=== PATIENT | female | born 1960 | race Caucasian/White ===

== ENCOUNTER 2022-04-17 13:34 | Outpatient (CLI) | payer BC, SELFPAY | END 2022-04-17 13:35 | disposition home or self-care (01) | LOC: LAB 13:36 | PROVIDERS: PCP Family Medicine; Referring Provider Orthopaedic Surgery; Visit Provider Orthopaedic Surgery | DX: Z01.818 Encounter for other preprocedural examination (principal) | CPT/HCPCS: 36415; 86850; 86900; 86901 ==

== ENCOUNTER 2022-04-19 05:57 | Day surgery (SDC) | payer BC, SELFPAY ==
[2022-04-19] VITALS (28 sets, daily range): BP systolic 126–189; BP diastolic 71–144; PULSE 68–99; RESP 12–20; TEMP 35.6–37.2; O2SAT 88–99; BMI 29.8
[2022-04-19] MEDS: LACTATED RINGERS 1000 ML 1,000 ML 100 ML IV (06:30)
[2022-04-19] MEDS: SODIUM CHLORIDE 0.9 % (FLUSH) 10 ML SYRINGE IVF (07:14)
--- NOTE | 2022-04-19 07:30 | CRLHL7_ITS ---
For Patients: As a result of the Cures Act, medical imaging exams and procedure reports are released immediately into your electronic medical record. You may view this report before your referring provider. If you have questions, please contact your health care provider. Indication: Hip replacement surgery Technique: AP hip fluoroscopic images. Fluoroscopy time 67.5 seconds. Findings/Impression: Hardware from a left total hip arthroplasty is in satisfactory position. Dictated by Jose Trevino MD @ 04/19/2022 1:38:47 PM (Electronically Signed)
[2022-04-19] MEDS: ACETAMINOPHEN 500 MG TABLET 1000 MG PO ×2 (07:50→17:57)
[2022-04-19] MEDS: OXYCODONE (CR) 10 MG TAB.ER.12H PO (07:50)
[2022-04-19] MEDS: CELECOXIB 200 MG CAPSULE PO (07:50)
[2022-04-19] MEDS: fentaNYL 100 MCG/2 ML inj IVP (07:54)
[2022-04-19] MEDS: MIDAZOLAM HCL 1 MG/ML inj IVP (07:54)
--- NOTE | 2022-04-19 07:55 | SUR.PREOP ---
TIME?OUT:?0753 PT/duc donaldson RN/dr. phillip MDA?VERIFICATION?OF?SURGICAL?SITE left hip,?PROCEDURE,?AND?CONSENT OBTAINED?PRIOR?TO?INVASIVE?PROCEDURE.
--- NOTE | 2022-04-19 08:05 | P.NB_ITS ---
Nerve Block Nerve Block Time Seen by Provider: 07:51 Date Seen: 04/19/22 Type of block requested by surgeon for post-operative analgesia: SUN/LFCN Side: left Time out performed: Yes Verification of patient name: Yes Verification of date of : Yes Site marking: site marked Name of person performing procedure: Tadeo Assistants, if any: DeAmbrogio Continuous monitoring Was continuous monitoring of O2 sat, B/P, edging supervisor, recorded every 15 minutes?: Yes Procedure Checklist: sterile prep and needles Ultrasound guided. Images saved: Yes Medications given in 5ml increments after negative aspiration: Ropivicaine %: 0.5 mL: 20 Needle gauge: 20 Decadron (mg): 10 Precedex (mcg): 25 Patient tolerated procedure well: Yes Additional comments: Needle noted adjacent to nerve
[2022-04-19] MEDS: CEFAZOLIN 2 GM INJ IVP (08:20)
--- NOTE | 2022-04-19 10:20 | SUR.OPER ---
3000 ML USED FOR IRRIGATION USED AT THE END OF THE CASE.
--- NOTE | 2022-04-19 10:21 | CRLHL7_ITS ---
For Patients: As a result of the Cures Act, medical imaging exams and procedure reports are released immediately into your electronic medical record. You may view this report before your referring provider. If you have questions, please contact your health care provider. Indication: POST OP Technique: AP hip centered pelvic film and lateral view left hip Findings/Impression: Hardware from a left total hip arthroplasty is in satisfactory position. Bone alignment is normal. No sign of acute fracture. Postop changes are within normal limits. Dictated by Jose Trevino MD @ 04/19/2022 1:44:55 PM (Electronically Signed)
--- NOTE | 2022-04-19 10:29 | P.ORPRC_ITS ---
Procedure Note Procedure: SURGEON: Francisco Lao MD SCADA OPERATOR: Katherin Robins PA-C, [facility] PREOPERATIVE DIAGNOSIS: Left hip osteoarthritis POSTOPERATIVE DIAGNOSIS: Left hip osteoarthritis NAME OF OPERATION: Left total hip arthroplasty IMPLANTS: 1. [employer] [place] # 54 sector ingrowth cup 2. 36 x 54 +4 neutral polyethylene 3. [place]ail # 9 standard collared ingrowth stem 4. 36 + 1.5 ceramic femoral head ANESTHESIA: General ESTIMATED BLOOD LOSS: 300 cc COMPLICATIONS: None SPECIMENS: None DRAINS: None PREOPERATIVE ANTIBIOTICS: Ancef 2 grams INDICATIONS: The patient is a 61-year-old with a longstanding history of severe, unrelenting left hip pain secondary to end-stage left hip osteoarthritis . Despite appropriate nonoperative management, including activity modification, use of an assist device, anti-inflammatories, [id number] pain medication, physical therapy and injections, they continue to have pain and disability. Operative intervention was offered. The risks, benefits and expected outcomes were discussed in detail. These included but were not limited to: Infection, bleeding, injury to blood vessel or nerve, venous thromboembolism. All questions were answered to their satisfaction. Use of an retail event and sales assistant was necessary throughout the case for patient positioning and safety, soft tissue retraction and closure. PROCEDURE: The patient was placed supine on the [place] table. General anesthesia was administered. The retail event and sales assistant made sure the patient was properly positioned. The left hip was prepped and draped in the usual sterile fashion. The image intensifier was brought in for a perfect AP pelvis and a perfect double tear drop AP view of each hip which were used for intraoperative templating with our fluoroscopic guide. An oblique incision was made 3 cm distal and 3 cm lateral to the anterior superior iliac spine. The retail event and sales assistant retracted the soft tissues to protect them. Subcutaneous dissection was taken with electrocautery to the superficial fascia. The fascia was divided in line with the incision. Blunt dissection was carried medially to the tensor fascia alyssa and sartorius interval. Deep dissection was carried with electrocautery. The circumflex vessels were cauterized and divided. The capsule was exposed and then divided in a T-fashion , tagged with #1 Ethibond sutures. Retractors were placed in the joint, held by the retail event and sales assistant. The corkscrew was placed in the femoral head. The neck cut was made in the subcapital region. We made a second neck cut more distal. The napkin ring of bone was removed. The femoral head was removed intact. Acetabular retractors were placed, held by the retail event and sales assistant. The labrum was sharply debrided. The capsule was released. The 43 mm reamer was used to the true medial wall. We then enlarged in 2 mm increments using the image intensifier for our reamer placement. We impacted the cup which had excellent purchase. We placed the hole eliminator and the polyethylene. Attention was then turned to the proximal femur. The limb was placed in 140 degrees of external rotation, maximum extension and adduction. A significant amount of time was spent releasing the capsule to allow us to deliver the femur into the wound and complete the femoral side safely. Retractors were held by the retail event and sales assistant throughout the femoral preparation. The drip box tender and canal finder were used. Broaches were used to a stable size. The calcar reamer was used. Trial components were placed. The hip was reduced and was found to be stable with appropriate soft tissue tension. Length and offset had been nicely restored using the image intensifier and our fluoroscopic guide. Trial components were removed. The stem was impacted. We placed the femoral head. Again, the hip was reduced and was found to be stable with appropriate soft tissue tension. Length and offset had been nicely restored. The retail event and sales assistant did a three minute dilute Betadine solution soak. The retail event and sales assistant irrigated the wound with 3 liters of normal saline via pulse lavage. The retail event and sales assistant repaired the anterior capsule with a #1 Vicryl and our previously placed Ethibond sutures. The retail event and sales assistant closed the fascia over the tensor fascia alyssa with a #1 PDO Stratafix, subcutaneous tissues with 2-0 Vicryl, skin with a running 3-0 Stratafix and glue. A dry dressing was applied by the retail event and sales assistant. Sponge and needle counts were correct x 2. The patient tolerated the procedure well; there were no apparent complications. They were awakened and extubated in the operating room, sent to the Post-Anesthesia Care Unit in satisfactory condition. PLAN: 1. The patient will be mobilized with physical therapy, weight-bearing as tolerates 2. Xarelto x 5 days then aspirin x 30 days will be used for DVT prophylaxis 3. The patient will be discharged once medically appropriate
--- NOTE | 2022-04-19 10:56 | W.ANESCHARGE ---
Anesthesia Charges Start Date/Time Anesthesia Start Date: 04/19/22 Anesthesia Start Time: 08:09 Stop Date/Time Anesthesia Stop Date: 04/19/22 Anesthesia Stop Time: 10:54 Summary Emergency: No
[2022-04-19] MEDS: ONDANSETRON 2 MG/ML inj 4 MG IVP ×4 (11:10→18:50)
[2022-04-19] MEDS: fentaNYL 100 MCG/2 ML inj 50 MCG IVP ×2 (11:12→11:30)
[2022-04-19] MEDS: diphenhydrAMINE 50 MG/ML inj IVP (12:08)
[2022-04-19] MEDS: LACTATED RINGERS 1000 ML 1,000 ML 75 ML IV (12:58)
[2022-04-19] MEDS: OXYCODONE 5 MG TABLET PO ×2 (13:43→20:57)
[2022-04-19] MEDS: HYDROmorphone 0.5 mg/0.5 ml inj IVP (13:51)
[2022-04-19] MEDS: LORazepam 2 MG/ML inj 0.5 MG IVP (14:11)
--- NOTE | 2022-04-19 14:27 | PM.IMPN1 ---
Progress Note: A&P Assessment and plan (1) Hyperlipidemia: Problem details: continue statin Status: Chronic (2) Osteoarthritis of left hip: Problem details: s/p Left LEENA, EBL 300cc, General Anesthesia Status: Acute Assessment and Plan: pain control, diet, dvt ppx per surgery (3) Pseudogout of joint of left foot: Status: Chronic (4) Hypertension: Problem details: continue metoprolol and lisinopril Status: Chronic (5) Hypothyroidism: Problem details: continue synthroid Status: Chronic Subjective Time Seen by Provider: 15:08 Date Seen: 04/19/22 Interval history: The patient is status post left LEENA she was nauseated earlier after returning from surgery She was given ativan and currently is sedated denies chest pain and sob; but minimally engaging in conversation Exam Const: Vital Signs, click to edit/add: Vital Signs - 24 hr 04/19/22 06:56 04/19/22 07:52 04/19/22 07:55 Temperature 98.5 F Pulse Rate 89 89 87 Pulse Rate [Pulse Oximeter] Respiratory Rate 16 16 16 Blood Pressure 155/91 H 169/84 H 172/97 H Blood Pressure [Ri ght Arm] Pulse Oximetry 97 98 98 04/19/22 08:00 04/19/22 10:51 04/19/22 10:55 Temperature 97.4 F L Pulse Rate 81 90 81 Pulse Rate [Pulse Oximeter] Respiratory Rate 16 14 14 Blood Pressure 152/91 H 138/91 H 147/76 H Blood Pressure [Ri ght Arm] Pulse Oximetry 98 97 93 04/19/22 11:00 04/19/22 11:05 04/19/22 11:10 Temperature Pulse Rate 82 88 81 Pulse Rate [Pulse Oximeter] Respiratory Rate 14 14 12 Blood Pressure 156/87 H 161/122 H 139/81 Blood Pressure [Ri ght Arm] Pulse Oximetry 92 92 88 04/19/22 11:15 04/19/22 11:20 04/19/22 11:25 Temperature Pulse Rate 68 72 77 Pulse Rate [Pulse Oximeter] Respiratory Rate 12 12 12 Blood Pressure 144/76 H 143/71 H 155/75 H Blood Pressure [Ri ght Arm] Pulse Oximetry 94 94 99 04/19/22 11:30 04/19/22 11:35 04/19/22 11:40 Temperature 97 F L Pulse Rate 86 79 79 Pulse Rate [Pulse Oximeter] Respiratory Rate 12 12 12 Blood Pressure 153/88 H 161/80 H 181/97 H Blood Pressure [Ri ght Arm] Pulse Oximetry 92 95 95 04/19/22 11:50 04/19/22 12:00 04/19/22 12:15 Temperature 96.6 F L 96.2 F L 96.2 F L Pulse Rate Pulse Rate [Pulse Oximeter] 97 88 84 Respiratory Rate 20 20 16 Blood Pressure Blood Pressure [Ri ght Arm] 178/105 H 189/144 H 164/83 H Pulse Oximetry 96 98 92 04/19/22 12:30 04/19/22 12:45 04/19/22 13:00 Temperature 96.2 F L 96.1 F L 96.1 F L Pulse Rate Pulse Rate [Pulse Oximeter] 75 69 73 Respiratory Rate 20 16 16 Blood Pressure Blood Pressure [Ri ght Arm] 153/75 H 145/85 H 140/73 H Pulse Oximetry 95 97 95 Common normals: no apparent distress and alert Exam limitations: other limitations (sedated) Orientation/consciousness: Yes awake HENMT: Common normals: normocephalic and external ears normal Head and scalp: normocephalic External ear: external ears normal Mouth: oral and palatal mucosa normal Eye: Common normals: EOMs intact bilaterally Chest: Common normals: inspection of chest normal Resp: Common normals: normal respiratory effort and clear to auscultation bilaterally Auscultation: clear to auscultation bilaterally Cardio: Common normals: regular rate, regular rhythm, S1 normal heart sound and S2 normal heart sound Rate: regular rate Rhythm: regular rhythm Heart sounds: S1 normal and S2 normal GI: Common normals: soft to palpation and non-tender Palpation: soft Extremity: Common normals: normal to inspection Neuro: [place] Coma Scale: other (sedated) Sensorium/orientation: awake and alert Speech: speech normal Psych: Appearance: grossly normal
[2022-04-19] MEDS: CEFAZOLIN 2 GM in 0.9 % SODIUM CHLORIDE Mini-bag 100 ML IVPB ×2 (14:46→22:22)
[2022-04-19] MEDS: hydrOXYzine pamoate 25 MG CAPSULE PO (14:47)
--- NOTE | 2022-04-19 15:01 | PC.NURSE ---
pt to floor from PACU at 1150. pt awake and very nauseous at the time, pt verbalized that the fentanyl given to her in OR and PACU is making her very nauseous, shes very upset bcuz she had fentanyl listed as an allergy and it was confirmed prior to surgery. pt advocate called at 1347, Dr Lao called at 1354 - both entered room at 1418 to speak with pt.
--- NOTE | 2022-04-19 15:27 | W.ANESCHARGE ---
Anesthesia Charges Start Date/Time Anesthesia Start Date: 04/19/22 Anesthesia Start Time: 08:09 Stop Date/Time Anesthesia Stop Date: 04/19/22 Anesthesia Stop Time: 10:54 Summary Emergency: No
--- NOTE | 2022-04-19 15:30 | PM.ANBPRC ---
PFSH PFS Medical History (Updated 04/19/22 @ 15:16 by Hasmukh Hernandez MD) Class 1 obesity Hyperlipidemia Hypertension Hypothyroidism Osteoarthritis of knee Osteoarthritis of left hip Pseudogout of joint of left foot Vasculitis Surgical History (Updated 04/19/22 @ 14:37 by Hasmukh Hernandez MD) Status post right hip replacement (2019) Family History (Updated 03/28/22 @ 11:52 by Varun Lopez) Other Colon cancer Diabetes Lymphoma Social History (Updated 03/28/22 @ 11:52 by Varun Lopez) Narrative: Single, 2 kids, unemployed Non-smoker No EtOH Smoking Status: Former smoker Do you use any of these nicotine containing products: None How often do you have a drink containing alcohol: never AUDIT-C Alcohol total score: 0 Non-prescribed substance use: denies use Caffeine: Yes Are you using contraception or practicing any form of control: No Meds Home Medications and Allergies Home Medications Medication Instructions Recorded Confirmed Type amoxicillin 500 mg capsule 2,000 mg PO ONCE cap 04/13/22 04/17/22 History atorvastatin 20 mg tablet 20 mg PO QPM 04/13/22 04/19/22 History levothyroxine 75 mcg capsule 75 mcg PO QDAY 04/13/22 04/19/22 History lisinopril 10 mg tablet 10 mg PO QDAY 04/15/22 04/19/22 History metoprolol succinate 50 mg 50 mg PO DAILY tab 04/15/22 04/19/22 History tablet,extended release 24 hr Allergies Allergy/AdvReac Type Severity Reaction Status Date / Time codeine Allergy Intermediate shaky Verified 04/19/22 06:21 fentanyl Allergy Intermediate jenniferky, Verified 04/19/22 14:44 didn't feel right, heart pounding hydrochlorothiazide AdvReac Severe felt like Verified 04/19/22 06:21 she was having a heart attack Results Vital Signs Vital Signs: Last Vital Signs Temp 96.1 F L 04/19/22 15:00 Pulse 84 04/19/22 15:00 Resp 16 04/19/22 15:00 BP 139/82 04/19/22 15:00 Pulse Ox 95 04/19/22 15:00 Weight: 83.915 kg Height: 167.64 cm
[2022-04-19] MEDS: PROCHLORPERAZINE 5 MG/ML VIAL IV ×2 (17:53→23:34)
--- NOTE | 2022-04-19 18:07 | PC.NURSE ---
pt to floor 1150. A x 1 with gb and walker, tolerated very well. 1x to BR, 150mL urine output. pt sat in chair for a short period of time. 75mL/hr LR running in left wrist IV. pt struggling with nausea since admin to the floor, Zofran & Compazine given, aromatherapy patch applied. about 10ml of emesis after sipping on brian liss. at end of shift pt is stating slight improvement with her nausea. pain currently rated 3/10, see emar. active ice to site. BP trending down, still hypertensive. LS CTA. Pt on 1L O2 while asleep to maintain sats >88%. On RA while awake and O2 sat 94%. Dressing to surgical site CDI. Cap refill <3secs. Pt cussing frequently. stating they did something different this time, if I knew i was going to feel this shitty I wouldn't have gotten this surgery - Pt had a RTH done here previously and said it was not nearly this bad.
[2022-04-19] MEDS: ATORVASTATIN 10 MG TABLET 20 MG PO (20:56)
[2022-04-19] MEDS: SENNOSIDES 1 TAB TABLET 2 TAB PO (20:56)
[2022-04-20] MEDS: ACETAMINOPHEN 500 MG TABLET 1000 MG PO ×2 (00:31→06:11)
[2022-04-20] MEDS: LACTATED RINGERS 1000 ML 1,000 ML 75 ML IV (01:45)
[2022-04-20 03:00] VITALS: BP 133/81; PULSE 88; RESP 18; TEMP 36.8; O2SAT 92
[2022-04-20] MEDS: CEFAZOLIN 2 GM in 0.9 % SODIUM CHLORIDE Mini-bag 100 ML IVPB (06:09)
[2022-04-20] MEDS: ONDANSETRON 2 MG/ML inj 4 MG IVP (06:10)
--- NOTE | 2022-04-20 06:19 | PC.NURSE ---
[id number]: Patient pleasant and cooperative. Rates pain 2-4/10. PRN Oxy x1 for relief. C/o nausea with x1 emesis episode. PRN Compazine x1 and Zofran x1 administered for relief. Only able to tolerate brian liss and water at this point. A1, walker, GB. Tolerates well. CMS intact. Dressing to L. hip C/D/I.
[2022-04-20] MEDS: LEVOTHYROXINE 75 MCG TABLET PO (07:02)
[2022-04-20 07:52] VITALS: BP 138/73; PULSE 93; RESP 18; TEMP 37.1; O2SAT 92
[2022-04-20] MEDS: SENNOSIDES 1 TAB TABLET 2 TAB PO (08:59)
[2022-04-20] MEDS: METOPROLOL SUCCINATE (XL) 50 MG TAB PO (08:59)
[2022-04-20] MEDS: lisinopriL 10 MG TABLET PO (08:59)
[2022-04-20] MEDS: RIVAROXABAN 10 MG TABLET PO (08:59)
[2022-04-20] MEDS: OXYCODONE 5 MG TABLET PO (08:59)
[2022-04-20 09:09] LABS: Hematocrit 32.8 % (33.0-51.0); Hemoglobin* 10.7 gm/dL (12.0-16.0); Immature Granulocytes Abs Auto 0.05 K/uL (0.00-0.30); Mean Corpuscular HGB Conc 33 gm/dL (32-36); Mean Corpuscular Hemoglobin 30 pg (26-34); Mean Corpuscular Volume 91 fL (80-100); Monocytes Percent Auto 5.5 % (0.0-11.0); Neutrophils Percent Auto 86.3 % (42.0-72.0); Platelet Count* 332 K/uL (140-440); RDW Coefficient of Variation % 13.1 % (11.5-15.5); Red Blood Count 3.62 m/uL (4.00-5.20)
[2022-04-20 09:22] LABS: Chloride* 104 mmol/L (96-114); Potassium* 3.9 mmol/L (3.6-5.1); Sodium* 136 mmol/L (135-149)
[2022-04-20 09:25] LABS: Blood Urea Nitrogen* 13 mg/dL (7-30); Calcium* 8.2 mg/dL (8.4-10.6); Carbon Dioxide* 27 mmol/L (20-32); Creatinine* 0.7 mg/dL (0.5-1.5); Est. Creatinine Clearance* 80.01; Estimated Glomerular Filt Rate 98.95; Glucose* 133 mg/dL (60-115)
[2022-04-20 09:40] LABS: White Blood Count* 25.32 K/uL (4.50-11.00)
[2022-04-20 09:41] LABS: Neutrophils Absolute Auto 21.86 K/uL (1.7-7.0); Slide Review Reflex Yes
[2022-04-20 09:43] LABS: Slide Review Acceptable Review (Acceptable)
--- NOTE | 2022-04-20 11:30 | PC.NURSE ---
discharge. ? Patient has been pleasant and cooperative.? Rates pain 0-2/10.?left hip PRN Oxy x1 for PT. no nausea.? she is eating, drinking and voiding with no problems. she is up with 1 assist, walker, GB.? she is a fall risk and alarms are on.? CMS intact.? Dressing to L. hip C/D/I.?active ice to hip. IS used, teds are on and off. SL was d/c intact. went over discharge packet with pt. went over medications appointments, instruction and education, pt went over and signed personal belonging sheet. she got a w/c ride out and took all paperwork and belongings
--- NOTE | 2022-04-20 13:23 | PM.ORPN ---
Subjective Subjective Time Seen by Provider: 07:30 Date Seen: 04/20/22 Principal diagnosis: Status post left hip replacement Interval history: The patient is status post left LEENA she was nauseated earlier after returning from surgery She was given ativan and currently is sedated denies chest pain and sob; but minimally engaging in conversation Ortho Exam Narrative Exam Narrative: Alert and oriented x3. Patient is in no acute distress. Converses without labored breathing. Hearing is grossly intact. Patient is examined in her recliner this morning. Examination of the left hip shows the dressing is intact. Mild soft tissue edema about the left hip. Mild ecchymosis. Tenderness over the anterior thigh with palpation. CMS intact left lower extremity. Bilateral calves are soft and nontender. Const Vital Signs, click to edit/add: Vital Signs - 24 hr 04/19/22 13:30 04/19/22 14:00 04/19/22 15:00 Temperature 96.1 F L 96.1 F L 96.1 F L Pulse Rate [Pulse Oximeter] 98 99 84 Respiratory Rate 20 20 16 Blood Pressure [Right Arm] 145/83 H 155/108 H 139/82 Pulse Oximetry 99 95 95 04/19/22 16:00 04/19/22 17:00 04/19/22 19:00 Temperature 96.1 F L 97 F L 98.9 F Pulse Rate [Pulse Oximeter] 74 77 85 Respiratory Rate 16 18 18 Blood Pressure [Right Arm] 140/80 H 154/117 H 145/75 H Pulse Oximetry 95 97 94 04/19/22 23:00 04/20/22 03:00 04/20/22 07:52 Temperature 97.9 F 98.3 F 98.7 F Pulse Rate [Pulse Oximeter] 86 88 93 Respiratory Rate 16 18 18 Blood Pressure [Right Arm] 126/75 133/81 138/73 Pulse Oximetry 94 92 92 Common normals: no apparent distress and oriented x3 General appearance: cooperative, comfortable, well kempt and well developed HENMT Common normals: Yes hearing grossly normal bilaterally Resp Common normals: Yes normal respiratory effort and Yes no retractions Cardio Common normals: Yes no JVD Neuro Common normals: oriented x3 Psych Common normals: mental status grossly normal, thought process normal, cooperative, affect normal, speech normal and activity/motor behavior normal Appearance: well kempt Attitude: calm and engaged Speech: normal speech Thought process: normal thought process Thought content: normal thought content Attention/concentration: attention grossly intact and concentration grossly intact Insight: insight good Assessment and Plan Assessment and plan (1) Hyperlipidemia: Problem details: continue statin Status: Chronic (2) Osteoarthritis of left hip: Problem details: s/p Left LEENA, EBL 300cc, General Anesthesia Status: Acute Assessment and Plan: Plan for discharge is today to home if they meet discharge criteria. DVT prophylaxis includes Xarelto 10 mg daily for total of 5 days, then aspirin 81 mg twice daily for 30 days, Emmanuel stockings x1 month may remove for 1 hr per day, frequent ambulation Remove dressing 1 week. Observe wound and phone Orthopedics with any questions or concerns Use Ice on operative hip unrestricted. Return to clinic in 1 week with PA for a wound check Return to clinic in [address] Lao Minimize narcotic use. Wean off and discontinue soon as possible. Activities as tolerated. No strenuous activity. Attend outpt PT (3) Pseudogout of joint of left foot: Status: Chronic (4) Hypertension: Problem details: continue metoprolol and lisinopril Status: Chronic (5) Hypothyroidism: Problem details: continue synthroid Status: Chronic
--- NOTE | 2022-04-20 15:49 | P.DS_ITS ---
DS: Providers Provider Primary care physician: Jose Hughes MD Consults: 04/19/22 10:21 Consult to Occupational Therapy [CONS] Routine Comment: Reason(s) for OT Consult:: Evaluate and Treat Any Restrictions?:: No Restrictions Consult to Physical Therapy [CONS] Routine Comment: Ambulate in the bella today Reason(s) for PT Consult:: Evaluate and Treat Any Restrictions?:: No Restrictions Comment: Nursing Activity Consult to Management And Budget Analyst [CONS] Routine Comment: Reason for Consult:: Discharge Planning Needs Attending Physician on discharge: Francisco Lao MD DS: Diagnosis Discharge Diagnosis (1) Osteoarthritis of left hip: Status: Acute Problem details: s/p Left LEENA, EBL 300cc, General Anesthesia (2) Hypertension: Status: Chronic Problem details: continue metoprolol and lisinopril (3) Hyperlipidemia: Status: Chronic Problem details: continue statin (4) Class 1 obesity: Status: Acute (5) Vasculitis: Status: Acute (6) Pseudogout of joint of left foot: Status: Chronic (7) Hypothyroidism: Status: Chronic Problem details: continue synthroid DS: Summary Hospital Course Hospital Course: Patient presented for an elective left total hip arthroplasty. Procedure undertaken successfully. Postoperatively pain was not well controlled and she received a dose of fentanyl. She has previously had an untoward reaction to fe ntanyl. This was listed on her allergy band. Evidently nevertheless she still receive fentanyl at this hospitalization. Had nausea, vomiting, retching subsequently. Eventually resolved. Otherwise had excellent recovery while in the hospital. Status at Discharge Cognitive/behavioral status at discharge: Alert, oriented to self, place, time, situation. Mood and affect are congruent. Overall status at discharge: patient is progressing back to baseline Time Spent with Patient Time attestation: Total time spent providing and/or coordinating discharge services: Time spent: Less than 30 minutes Exam Narrative: Exam Narrative: Eating and drinking without difficulties. Ambulating the halls with use of walker. Lungs are clear to auscultation. Regular heart rate and rhythm of the heart. Abdomen with active bowel sounds, soft, nontender. Const: Vital Signs, click to edit/add: Vital Signs - 24 hr 04/19/22 16:00 04/19/22 17:00 04/19/22 19:00 Temperature 96.1 F L 97 F L 98.9 F Pulse Rate [Pulse Oximeter] 74 77 85 Respiratory Rate 16 18 18 Blood Pressure [Ri ght Arm] 140/80 H 154/117 H 145/75 H Pulse Oximetry 95 97 94 04/19/22 23:00 04/20/22 03:00 04/20/22 07:52 Temperature 97.9 F 98.3 F 98.7 F Pulse Rate [Pulse Oximeter] 86 88 93 Respiratory Rate 16 18 18 Blood Pressure [Ri ght Arm] 126/75 133/81 138/73 Pulse Oximetry 94 92 92 DS: Data Data Completed and Pending Labs on day of discharge: Labs from last 24 hours 04/20/22 04/20/22 08:52 08:52 WBC 25.32 H* RBC 3.62 L Hgb 10.7 L Hct 32.8 L MCV 91 MCH 30 MCHC 33 RDW Coeff of Viky 13.1 Plt Count 332 Neut % (Auto) 86.3 H Lymph % (Auto) 8.0 L [place] % (Auto) 5.5 Eos % (Auto) 0.0 Baso % (Auto) 0.0 Neut # (Auto) 21.86 H Lymph # (Auto) 2.00 [place] # (Auto) 1.40 H Eos # (Auto) 0.00 Baso # (Auto) 0.00 Abs Immat Gran (auto) 0.05 Diff Slide Review Acceptable Review Sodium 136 Potassium 3.9 Chloride 104 Carbon Dioxide 27 BUN 13 Creatinine 0.7 Estimated Creat Clear 80.01 Glucose 133 H Calcium 8.2 L Discharge Plan Discharge Disposition: Home, Self-Care Discharging Surgeon: Francisco Lao Follow-Up Appointment: One week Prescriptions: New acetaminophen 500 mg Tablet 500 - 1,000 mg PO Q6H PRNQty: 100 0RF oxycodone 5 mg Tablet 2.5 - 5 mg PO Q4-6H PRN (Reason: Pain) Qty: 42 0RF Xarelto 10 mg Tablet 10 mg PO DAILY Qty: 4 0RF sennosides [Senna Lax] 8.6 mg Tablet 17.2 mg PO BID Qty: 100 0RF aspirin [Aspirin Childrens] 81 mg tablet,chewable 81 mg PO BID 30 Days Qty: 60 0RF Continued lisinopril 10 mg tablet 10 mg PO QDAY 0RF metoprolol succinate 50 mg tablet extended release 24 hr 50 mg PO DAILY 0RF amoxicillin 500 mg capsule 2,000 mg PO ONCE 0RF Rx Instructions: 1 HR PRIOR TO APPT. levothyroxine 75 mcg capsule 75 mcg PO QDAY 0RF atorvastatin 20 mg tablet 20 mg PO QPM 0RF No Action tramadol 50 mg tablet 50 mg PO Q6H PRN (Reason: pain) Qty: 30 0RF Activity Level: Activity as Tolerated and No strenuous activity Activity Detail: keep dressing in place. Dressing is waterproof. May shower. Surgical glue covers the wound. Notify Orthopedics with any questions or concerns. Return to orthopedic clinic in 1 week As scheduled. Discharge Diet: Heart Healthy (2 gm sodium, low fat) Patient Instructions: Acetaminophen (By mouth), Aspirin (By mouth), Laxative, Stool Softeners (By mouth), Oxycodone, Rapid Release (By mouth), Rivaroxaban (By mouth), Surgical Site Infections (DC), Anterior Hip Replacement (DC) Follow-up: Katherin Ortiz PA-C [Physician Double Bass Player] - 04/29/22 9:00 am (Appointment is in [place]) Jose Hughes MD [Primary Care Provider] - 04/27/22 11:15 am (Arrive 15 minutes prior for labs.) Discharge Orders: Discharge Order (Routine); Ordered 04/20/22 Ordered By: Francisco Lao
== END 2022-04-20 10:55 | disposition home or self-care (01) ==
LOC: OR 11:19 → MEDSURG 12:29
PROVIDERS: Physician Assistant; PCP Family Medicine; Visit Provider Orthopaedic Surgery
PROC: (CPT 27130; principal; 2022-04-19 07:30)
DX: M16.12 Unilateral primary osteoarthritis, left hip (principal); E78.5 Hyperlipidemia, unspecified; M10.9 Gout, unspecified; I10 Essential (primary) hypertension; E03.9 Hypothyroidism, unspecified; E66.9 Obesity, unspecified
CPT/HCPCS: 27130; 1214; 36415; 64450; 73501; 76000; 76942; 80048; 85025; 97110; 97116; 97161; 97165; 97535; A9270; C1776; J0330; J0690; J0780; J1100; J1170; J1200; J2060; J2250; J2405; J2704; J2710; J2795; J3010; J7120

== ENCOUNTER 2022-04-22 20:34 | Emergency (ER) | payer BC, SELFPAY ==
[2022-04-22 20:48] VITALS: BP 143/84; PULSE 99; RESP 14; TEMP 36.1; O2SAT 94; BMI 29.1
--- NOTE | 2022-04-22 21:15 | CRLHL7_ITS ---
For Patients: As a result of the Century Cures Act, medical imaging exams and procedure reports are released immediately into your electronic medical record. You may view this report before your referring provider. If you have questions, please contact your health care provider. INDICATION: Shortness of breath TECHNIQUE: Chest radiograph 1 view COMPARISON: None FINDINGS: The sensitivity and specificity of the exam are moderately limited by the patient`s body habitus. Mediastinum: The mediastinum is normal in appearance. The heart silhouette is normal in size and morphology. Lung: Both lungs are unremarkable in appearance with small lung volumes. No sign of pleural effusion seen. No pneumothorax is identified. Bone and Soft tissue: Unremarkable for age. IMPRESSION: 1. No acute cardiopulmonary disease is seen. Dictated by: Qamar Lopez MD @ 04/22/2022 22:18:35 (Electronically Signed)
--- NOTE | 2022-04-22 21:22 | ED.GENADULT ---
HPI - General Adult General Chief complaint: Nausea/Vomiting Stated complaint: VOMITING,CHILLS,NAUSEA Time Seen by Provider: 04/22/22 21:00 History of Present Illness HPI narrative: 61-year-old female, postoperative day 3. , status post a left total hip arthroplasty comes in today complaining of vomiting. States that the vomiting started about a day and a half ago. She cannot keep anything down. She feels nauseated all the time. She denies any fevers however state that she will get hot sweats and then have the chills shortly afterwards. She has been quite constipated after surgery so she stop taking her oxycodone, started taking only Tylenol, and took some medication for constipation today. She states that she has had 4 bowel movements have been loose today. She denies any urinary symptoms such as increased frequency, urgency or dysuria. She denies any chest or abdominal pain. She denies any increased pain at her surgical site or leg. she is on Xarelto postoperatively. She denies feeling short of breath . She denies any cough. Related Data Home Medications Medication Instructions Recorded Confirmed amoxicillin 500 mg capsule 2,000 mg PO ONCE cap 04/13/22 04/17/22 atorvastatin 20 mg tablet 20 mg PO QPM 04/13/22 04/19/22 levothyroxine 75 mcg capsule 75 mcg PO QDAY 04/13/22 04/19/22 lisinopril 10 mg tablet 10 mg PO QDAY 04/15/22 04/19/22 metoprolol succinate 50 mg 50 mg PO DAILY tab 04/15/22 04/19/22 tablet,extended release 24 hr Previous Rx's Medication Instructions Recorded tramadol 50 mg tablet 50 mg PO Q6H PRN #30 tab 04/13/22 acetaminophen 500 mg tablet 500 - 1,000 mg PO Q6H PRN #100 tab 04/19/22 aspirin 81 mg chewable tablet 81 mg PO BID 30 Days #60 tab 04/19/22 (Aspirin Childrens) oxycodone 5 mg tablet 2.5 - 5 mg PO Q4-6H PRN #42 tab 04/19/22 rivaroxaban 10 mg tablet (Xarelto) 10 mg PO DAILY #4 tab 04/19/22 sennosides 8.6 mg tablet (Senna 17.2 mg PO BID #100 tab 04/19/22 Lax) ondansetron 4 mg disintegrating 4 mg PO TID PRN 4 Days #16 tab 04/23/22 tablet Allergies Allergy/AdvReac Type Severity Reaction Status Date / Time codeine Allergy Intermediate suyapa Verified 04/19/22 06:21 fentanyl Allergy Intermediate suyapa, Verified 04/19/22 14:44 didn't feel right, heart pounding hydrochlorothiazide AdvReac Severe felt like Verified 04/19/22 06:21 she was having a heart attack Review of Systems Narrative: Entire review of systems was done was negative except for those things mentioned in the HPI. [facility] Medical History Class 1 obesity Hyperlipidemia Hypertension Hypothyroidism Osteoarthritis of knee Osteoarthritis of left hip Pseudogout of joint of left foot Vasculitis Surgical History Status post right hip replacement (2019) Family History Other Colon cancer Diabetes Lymphoma Social History Narrative: Single, 2 kids, unemployed Non-smoker No EtOH Smoking Status: Former smoker Do you use any of these nicotine containing products: None How often do you have a drink containing alcohol: never AUDIT-C Alcohol total score: 0 Non-prescribed substance use: denies use Caffeine: Yes Are you using contraception or practicing any form of control: No Exam Narrative: Exam Narrative: Well-nourished well-developed patient in no acute distress. Alert and oriented. Answers questions appropriately. Mood and affect are appropriate. Thoughts are goal oriented and rational. No tangential or magical thinking noted. Patient speaks in full sentences without needing to catch her breath. HEENT: Normocephalic atraumatic. Pupils are equally round reactive to light. Extraocular muscles are intact. Conjunctivae are moist without any icterus noted. slightly dry mucous membranes. Posterior pharynx is normal. Neck is soft without any lymphadenopathy or thyromegaly. No masses are appreciated. Cardiovascular: Heart is regular rate and rhythm S1 and S2 are present without any murmurs. Lungs: Clear to auscultation bilaterally no wheezes rhonchi or rales are appreciated. Patient takes deep breaths without any discomfort. Abdomen: Soft and nontender nondistended with normal bowel sounds. Extremities: normal right lower extremity. Left lower extremity has increased circumference at the thigh and calf but without any pain. She does have heat and very mild erythema around her surgical incision, this radiates into the anterior thigh and down the lateral thigh a couple inches past the incision. The incision itself looks clean, healing appropriately, no drainage. Const: Vital Signs, click to edit/add: Vital Signs - 24 hr 04/22/22 20:48 Temperature 96.9 F L Pulse Rate [Pulse Oximeter] 99 Respiratory Rate 14 Blood Pressure [Ri t Upper Arm] 143/84 H Pulse Oximetry 94 Course Vital Signs Vital signs: Initial Vital Signs Temperature 96.9 F L 04/22/22 20:48 Temperature Source Temporal Artery Scan 04/22/22 20:48 Pulse Rate 99 04/22/22 20:48 Pulse Rhythm 04/22/22 20:48 Respiratory Rate 14 04/22/22 20:48 Blood Pressure 143/84 H 04/22/22 20:48 Blood Pressure Mean 103 04/22/22 20:48 Blood Pressure Position Sitting 04/22/22 20:48 Pulse Oximetry 94 04/22/22 20:48 Oxygen Delivery Method 04/22/22 20:48 Vital Signs Temperature 96.9 F L 04/22/22 20:48 Pulse Rate 99 04/22/22 20:48 Respiratory Rate 14 04/22/22 20:48 Blood Pressure 143/84 H 04/22/22 20:48 Pulse Oximetry 94 04/22/22 20:48 Temperature 96.9 F L 04/22/22 20:48 Pulse Rate 99 04/22/22 20:48 Respiratory Rate 14 04/22/22 20:48 Blood Pressure 143/84 H 04/22/22 20:48 Pulse Oximetry 94 04/22/22 20:48 Medical Decision Making MDM Narrative Medical decision making narrative: Patient did have some abnormal labs however expected postoperatively. Potential differential diagnosis at this time could include a pseudo obstruction secondary to constipation, potential beginning of infection, reaction to narcotic pain medication. We discussed urine cultures and blood cultures which were both drawn-patient refused a 2nd blood culture so we only have 1. At this point she will be sent home with careful monitoring. I will give her prescription for Zofran to take as needed. We discussed returning to the ER if she develops a fever, if she cannot keep anything down. Or certainly if her blood cultures come back positive. Also encouraged her to return if she begins to feel weak or develops dizziness. Medical Records Medical records reviewed: Yes I reviewed the patient's medical records Lab Data Lab results reviewed: Yes I reviewed the patient's lab results Lab results narrative: WBC elevated at just above 16,000 however this is down from just above 25,000 two days ago. Her hemoglobin is low, however expected postoperatively. Her CRP and sed rate are both elevated. Labs: Lab Results 04/22/22 04/22/22 04/22/22 Range/Units 21:29 22:16 22:16 WBC (4.50-11.00) K/uL RBC (4.00-5.20) m/uL Hgb (12.0-16.0) gm/dL Hct (33.0-51.0) % MCV (80-100) fL MCH (26-34) pg MCHC (32-36) gm/dL RDW Coeff of Viky (11.5-15.5) % Plt Count (140-440) K/uL Neut % (Auto) (42.0-72.0) % Lymph % (Auto) (20-44) % Mason % (Auto) (0.0-11.0) % Eos % (Auto) (0.0-7.0) % Baso % (Auto) (0.0-3.0) % Neut # (Auto) (1.7-7.0) K/uL Lymph # (Auto) (0.90-2.90) K/uL Mason # (Auto) (0.00-0.90) K/UL Eos # (Auto) (0.00-0.50) K/uL Baso # (Auto) (0.00-0.30) K/uL Abs Immat Gran (auto) (0.00-0.30) K/uL ESR 50 H (2-20) mm/hr Sodium (135-149) mmol/L Potassium (3.6-5.1) mmol/L Chloride (96-114) mmol/L Carbon Dioxide (20-32) mmol/L BUN (7-30) mg/dL Creatinine (0.5-1.5) mg/dL Estimated Creat Clear Glucose (60-115) mg/dL Lactate 1.3 (0.5-1.9) mmol/L Calcium (8.4-10.6) mg/dL Total Bilirubin (0.1-1.5) mg/dL Direct Bilirubin (0.0-0.5) mg/dL AST (12-35) U/L ALT (4-35) U/L Alkaline Phosphatase (40-150) U/L C-Reactive Protein (0.5-1.0) mg/dL Total Protein (6.0-8.3) g/dL Albumin (3.3-5.0) g/dL Urine Color (Yellow) Urine Appearance (Clear) Urine pH (5.0-8.5) Ur Specific [place] (1.000-1.030) Urine Protein (Negative) Urine Glucose (UA) (Negative) Urine Ketones (Negative) Urine Blood (Negative) Urine Nitrite (Negative) Urine Bilirubin (Negative) Urine Urobilinogen (0.2-1.0) Ur Leukocyte Esterase (Negative) Urine RBC (0-2) Urine WBC (0-5) Ur Squamous Epith Cells (None-Few) Urine Bacteria (None) Urine Mucus (None) SARS-CoV-2 (PCR) Negative SARS-CoV-2 (Negative) Influenza Type A (PCR) NEGATIVE (Negative) Influenza Type B (PCR) NEGATIVE (Negative) POC Troponin I (0.01-0.04) ng/ml 04/22/22 04/22/22 04/22/22 Range/Units 22:16 22:16 22:16 WBC 16.87 H (4.50-11.00) K/uL RBC 3.30 L (4.00-5.20) m/uL Hgb 9.8 L (12.0-16.0) gm/dL Hct 29.8 L (33.0-51.0) % MCV 90 (80-100) fL MCH 30 (26-34) pg MCHC 33 (32-36) gm/dL RDW Coeff of Viky 12.8 (11.5-15.5) % Plt Count 351 (140-440) K/uL Neut % (Auto) 82.5 H (42.0-72.0) % Lymph % (Auto) 11.3 L (20-44) % Mason % (Auto) 4.9 (0.0-11.0) % Eos % (Auto) 0.2 (0.0-7.0) % Baso % (Auto) 0.2 (0.0-3.0) % Neut # (Auto) 13.90 H (1.7-7.0) K/uL Lymph # (Auto) 1.90 (0.90-2.90) K/uL Mason # (Auto) 0.80 (0.00-0.90) K/UL Eos # (Auto) 0.00 (0.00-0.50) K/uL Baso # (Auto) 0.00 (0.00-0.30) K/uL Abs Immat Gran (auto) 0.16 (0.00-0.30) K/uL ESR (2-20) mm/hr Sodium 137 (135-149) mmol/L Potassium 3.8 (3.6-5.1) mmol/L Chloride 103 (96-114) mmol/L Carbon Dioxide 27 (20-32) mmol/L BUN 12 (7-30) mg/dL Creatinine 0.5 (0.5-1.5) mg/dL Estimated Creat Clear 112.01 Glucose 149 H (60-115) mg/dL Lactate (0.5-1.9) mmol/L Calcium 8.4 (8.4-10.6) mg/dL Total Bilirubin 0.7 (0.1-1.5) mg/dL Direct Bilirubin 0.3 (0.0-0.5) mg/dL AST 39 H (12-35) U/L ALT 24 (4-35) U/L Alkaline Phosphatase 92 (40-150) U/L C-Reactive Protein 16.9 H (0.5-1.0) mg/dL Total Protein 6.3 (6.0-8.3) g/dL Albumin 3.7 (3.3-5.0) g/dL Urine Color (Yellow) Urine Appearance (Clear) Urine pH (5.0-8.5) Ur Specific [place] (1.000-1.030) Urine Protein (Negative) Urine Glucose (UA) (Negative) Urine Ketones (Negative) Urine Blood (Negative) Urine Nitrite (Negative) Urine Bilirubin (Negative) Urine Urobilinogen (0.2-1.0) Ur Leukocyte Esterase (Negative) Urine RBC (0-2) Urine WBC (0-5) Ur Squamous Epith Cells (None-Few) Urine Bacteria (None) Urine Mucus (None) SARS-CoV-2 (PCR) (Negative) Influenza Type A (PCR) (Negative) Influenza Type B (PCR) (Negative) POC Troponin I 0.00 L (0.01-0.04) ng/ml 04/22/22 Range/Units 23:45 WBC (4.50-11.00) K/uL RBC (4.00-5.20) m/uL Hgb (12.0-16.0) gm/dL Hct (33.0-51.0) % MCV (80-100) fL MCH (26-34) pg MCHC (32-36) gm/dL RDW Coeff of Viky (11.5-15.5) % Plt Count (140-440) K/uL Neut % (Auto) (42.0-72.0) % Lymph % (Auto) (20-44) % Mason % (Auto) (0.0-11.0) % Eos % (Auto) (0.0-7.0) % Baso % (Auto) (0.0-3.0) % Neut # (Auto) (1.7-7.0) K/uL Lymph # (Auto) (0.90-2.90) K/uL Mason # (Auto) (0.00-0.90) K/UL Eos # (Auto) (0.00-0.50) K/uL Baso # (Auto) (0.00-0.30) K/uL Abs Immat Gran (auto) (0.00-0.30) K/uL ESR (2-20) mm/hr Sodium (135-149) mmol/L Potassium (3.6-5.1) mmol/L Chloride (96-114) mmol/L Carbon Dioxide (20-32) mmol/L BUN (7-30) mg/dL Creatinine (0.5-1.5) mg/dL Estimated Creat Clear Glucose (60-115) mg/dL Lactate (0.5-1.9) mmol/L Calcium (8.4-10.6) mg/dL Total Bilirubin (0.1-1.5) mg/dL Direct Bilirubin (0.0-0.5) mg/dL AST (12-35) U/L ALT (4-35) U/L Alkaline Phosphatase (40-150) U/L C-Reactive Protein (0.5-1.0) mg/dL Total Protein (6.0-8.3) g/dL Albumin (3.3-5.0) g/dL Urine Color Yellow (Yellow) Urine Appearance Slightly Cloudy A (Clear) Urine pH 7.0 (5.0-8.5) Ur Specific [place] 1.020 (1.000-1.030) Urine Protein 1+ A (Negative) Urine Glucose (UA) Negative (Negative) Urine Ketones 2+ A (Negative) Urine Blood Trace-lysed A (Negative) Urine Nitrite Negative (Negative) Urine Bilirubin Negative (Negative) Urine Urobilinogen 0.2 (0.2-1.0) Ur Leukocyte Esterase Negative (Negative) Urine RBC 0-2 (0-2) Urine WBC 2-5 (0-5) Ur Squamous Epith Cells Moderate A (None-Few) Urine Bacteria Moderate A (None) Urine Mucus Many A (None) SARS-CoV-2 (PCR) (Negative) Influenza Type A (PCR) (Negative) Influenza Type B (PCR) (Negative) POC Troponin I (0.01-0.04) ng/ml Imaging Data Chest x-ray: Attestation: I have reviewed the pertinent imaging results. My impression: Normal chest x-ray Radiologist's impression: No acute cardiopulmonary disease is seen ECG Data Attestation: I personally reviewed and interpreted this ECG as follows: (Normal sinus rhythm) Discharge Plan Discharge Clinical Impression: Vomiting Patient Disposition: Home, Self-Care Condition: Stable Additional Instructions: For take Zofran as needed. Take in very small amounts of fluid frequently throughout the day and advance her diet as tolerated. Return to the ER if you develop a fever, inability to keep anything down, weakness, or shortness of breath. Prescriptions: New ondansetron 4 mg tablet,disintegrating 4 mg PO TID PRN (Reason: nausea and vomiting) 4 Days Qty: 16 0RF No Action lisinopril 10 mg tablet 10 mg PO QDAY 0RF metoprolol succinate 50 mg tablet extended release 24 hr 50 mg PO DAILY 0RF acetaminophen 500 mg Tablet 500 - 1,000 mg PO Q6H PRNQty: 100 0RF oxycodone 5 mg Tablet 2.5 - 5 mg PO Q4-6H PRN (Reason: Pain) Qty: 42 0RF Xarelto 10 mg Tablet 10 mg PO DAILY Qty: 4 0RF sennosides [Senna Lax] 8.6 mg Tablet 17.2 mg PO BID Qty: 100 0RF aspirin [Aspirin Childrens] 81 mg tablet,chewable 81 mg PO BID 30 Days Qty: 60 0RF tramadol 50 mg tablet 50 mg PO Q6H PRN (Reason: pain) Qty: 30 0RF amoxicillin 500 mg capsule 2,000 mg PO ONCE 0RF Rx Instructions: 1 HR PRIOR TO APPT. levothyroxine 75 mcg capsule 75 mcg PO QDAY 0RF atorvastatin 20 mg tablet 20 mg PO QPM 0RF Follow Up/Referrals: Jose Hughes MD [Primary Care Provider] - Stand Alone Forms: [facility] Info Inst[facility]
--- NOTE | 2022-04-22 21:23 | ED.NURSE ---
Report given to SMITHA Masters.
[2022-04-22] MEDS: 0.9 % SODIUM CHLORIDE 1000 ml 1,000 ML IV (21:56)
[2022-04-22] MEDS: ONDANSETRON 2 MG/ML inj 4 MG IVP (22:03)
[2022-04-22 22:22] LABS: Lactate* 1.3 mmol/L (0.5-1.9)
[2022-04-22 22:25] LABS: Basophils Percent Auto 0.2 % (0.0-3.0); Eosinophils Percent Auto 0.2 % (0.0-7.0); Mean Corpuscular HGB Conc 33 gm/dL (32-36); Mean Corpuscular Hemoglobin 30 pg (26-34); Neutrophils Percent Auto 82.5 % (42.0-72.0); RDW Coefficient of Variation % 12.8 % (11.5-15.5)
[2022-04-22 22:37] LABS: PCR FLU A NEGATIVE (Negative); PCR FLU B NEGATIVE (Negative); SARS PCR* Negative SARS-CoV-2 (Negative)
[2022-04-22 22:38] LABS: Albumin* 3.7 g/dL (3.3-5.0); Chloride* 103 mmol/L (96-114); Sodium* 137 mmol/L (135-149)
[2022-04-22 22:39] LABS: Potassium* 3.8 mmol/L (3.6-5.1)
[2022-04-22 22:41] LABS: Alkaline Phosphatase* 92 U/L (40-150); Aspartate Amino Transferase* 39 U/L (12-35); Bilirubin Direct* 0.3 mg/dL (0.0-0.5); Bilirubin Total* 0.7 mg/dL (0.1-1.5); Carbon Dioxide* 27 mmol/L (20-32); Creatinine* 0.5 mg/dL (0.5-1.5); Est. Creatinine Clearance* 112.01; Estimated Glomerular Filt Rate 107.31; Total Protein* 6.3 g/dL (6.0-8.3)
[2022-04-22 22:42] LABS: Alanine Aminotransferase* 24 U/L (4-35); Blood Urea Nitrogen* 12 mg/dL (7-30); Calcium* 8.4 mg/dL (8.4-10.6); Glucose* 149 mg/dL (60-115)
[2022-04-22 22:57] LABS: C Reactive Protein* 16.9 mg/dL (0.5-1.0)
[2022-04-22 23:02] LABS: Erythrocyte SedimentationRate* 50 mm/hr (2-20)
[2022-04-22 23:47] LABS: Hematocrit 29.8 % (33.0-51.0); Hemoglobin* 9.8 gm/dL (12.0-16.0); Immature Granulocytes Abs Auto 0.16 K/uL (0.00-0.30); Lymphocytes Percent Auto 11.3 % (20-44); Mean Corpuscular Volume 90 fL (80-100); Monocytes Percent Auto 4.9 % (0.0-11.0); Platelet Count* 351 K/uL (140-440); Slide Review Reflex No; White Blood Count* 16.87 K/uL (4.50-11.00)
[2022-04-22 23:55] LABS: Appearance Urine Slightly Cloudy (Clear); Bilirubin Urine Negative (Negative); Blood Urine Trace-lysed (Negative); Color Urine Yellow (Yellow); Glucose Urine Negative (Negative); Ketones Urine 2+ (Negative); Leukocyte Esterase Urine Negative (Negative); Nitrite Urine Negative (Negative); Protein Urine 1+ (Negative); Urobilinogen Urine 0.2 (0.2-1.0)
--- NOTE | 2022-04-22 23:57 | ED.NURSE ---
Patient refusing set of blood cultures. Education provided on indications and reasons for obtaining, MD told of patient's refusal. Patient will accept one set. Lab updated.
[2022-04-23 00:07] LABS: RBC Urine 0-2 (0-2)
[2022-04-23 00:08] LABS: Bacteria Urine Moderate; Mucus Urine Many; Squamous Epithelial Cell Urine Moderate (None-Few)
--- NOTE | 2022-04-23 00:16 | ED.NURSE ---
Lab and MD in room with patient.
[2022-04-23 00:18] VITALS: RESP 14; TEMP 36.1
== END 2022-04-23 00:23 | disposition home or self-care (01) ==
PROVIDERS: Emergency Provider Family Medicine; PCP Family Medicine
DX: R11.2 Nausea with vomiting, unspecified (principal); Z47.89 Encounter for other orthopedic aftercare
CPT/HCPCS: 36415; 71045; 80048; 80076; 81001; 83605; 84484; 85025; 85651; 86140; 87040; 87086; 87502; 87635; 93005; 96374; 99284; J2405; J7030

== ENCOUNTER 2022-09-02 09:11 | Outpatient (CLI) | payer OTHER, SELFPAY ==
[2022-09-02 12:25] LABS: Chloride* 108 mmol/L (96-114); Potassium* 4.1 mmol/L (3.6-5.1); Sodium* 140 mmol/L (135-149)
[2022-09-02 12:28] LABS: Blood Urea Nitrogen* 16 mg/dL (7-30); Carbon Dioxide* 26 mmol/L (20-32); Cholesterol* 156 mg/dL (90-199); Creatinine* 0.6 mg/dL (0.5-1.5); Estimated Glomerular Filt Rate 103 ml/min; Glucose* 87 mg/dL (60-115); Triglycerides* 141 mg/dL (40-149)
[2022-09-02 12:29] LABS: HDL Cholesterol* 45 mg/dL (>=50); LDL Cholesterol Calculated 83 mg/dL (<100)
== END 2022-09-02 09:12 | disposition home or self-care (01) ==
PROVIDERS: PCP Family Medicine; Visit Provider Family Medicine
DX: E03.9 Hypothyroidism, unspecified (principal); I10 Essential (primary) hypertension; E78.5 Hyperlipidemia, unspecified
CPT/HCPCS: 80048; 80061; 84443

== ENCOUNTER 2023-02-03 12:00 | Outpatient (CLI) | payer OTHER, SELFPAY ==
[2023-02-03 19:31] LABS: SARS PCR* Negative SARS-CoV-2 (Negative)
== END 2023-02-03 12:01 | disposition home or self-care (01) ==
LOC: LONREF 12:02
PROVIDERS: PCP Family Medicine; Visit Provider Family Medicine
DX: Z01.818 Encounter for other preprocedural examination (principal); Z20.822 Contact with and (suspected) exposure to COVID-19
CPT/HCPCS: 87635

== ENCOUNTER 2023-02-06 10:07 | Outpatient (CLI) | payer OTHER, SELFPAY ==
--- NOTE | 2023-02-06 11:13 | W.ANESCHARGE ---
Anesthesia Charges Start Date/Time Anesthesia Start Date: 02/06/23 Anesthesia Start Time: 10:38 Stop Date/Time Anesthesia Stop Date: 02/06/23 Anesthesia Stop Time: 11:11
--- NOTE | 2023-02-06 11:55 | W.ANESCHARGE ---
Anesthesia Charges Start Date/Time Anesthesia Start Date: 02/06/23 Anesthesia Start Time: 10:38 Stop Date/Time Anesthesia Stop Date: 02/06/23 Anesthesia Stop Time: 11:11
== END 2023-02-06 10:08 | disposition home or self-care (01) ==
LOC: OP CLINIC 10:08
PROVIDERS: PCP Family Medicine; Visit Provider Surgery
DX: Z12.11 Encounter for screening for malignant neoplasm of colon (principal); K64.8 Other hemorrhoids; K64.4 Residual hemorrhoidal skin tags; K57.30 Diverticulosis of large intestine without perforation or abscess without bleeding; Z80.0 Family history of malignant neoplasm of digestive organs
CPT/HCPCS: 00811; 00812; 45378

== ENCOUNTER 2023-06-26 15:58 | Outpatient (CLI) | payer OTHER, SELFPAY | END 2023-06-26 15:59 | disposition home or self-care (01) | PROVIDERS: PCP Family Medicine; Visit Provider Family Medicine | DX: Z01.818 Encounter for other preprocedural examination (principal); I10 Essential (primary) hypertension; E03.9 Hypothyroidism, unspecified; E78.5 Hyperlipidemia, unspecified; E66.9 Obesity, unspecified | CPT/HCPCS: 80048; 84443 ==

== ENCOUNTER 2024-07-26 08:43 | Outpatient (CLI) | payer OTHER, SELFPAY | END 2024-07-26 08:44 | disposition home or self-care (01) | PROVIDERS: PCP Family Medicine; Visit Provider Family Medicine | DX: E03.9 Hypothyroidism, unspecified (principal); E87.6 Hypokalemia; I10 Essential (primary) hypertension; E78.2 Mixed hyperlipidemia | CPT/HCPCS: 80048; 80061; 84443 ==

== ENCOUNTER 2025-09-19 08:34 | Outpatient (CLI) | payer OTHER, SELFPAY | END 2025-09-19 08:35 | disposition home or self-care (01) | PROVIDERS: PCP Family Medicine; Visit Provider Family Medicine | DX: I10 Essential (primary) hypertension (principal); E78.2 Mixed hyperlipidemia; E03.9 Hypothyroidism, unspecified | CPT/HCPCS: 80048; 80061; 84443 ==